=== PATIENT | female | born 1990 | race African-American/Black ===

== ENCOUNTER 2017-07-04 09:25 | Observation (INO) | payer MEDICAID ==
[~2017-07-04] VITALS: Ht 162.6 cm; Wt 75.3 kg
[2017-07-04] MEDS ORDERED: PREN1TAB78 PO (10:19)
== END 2017-07-04 10:35 | disposition home or self-care (01) ==
LOC: L&D 09:25
PROVIDERS: ADMIT Obstetrics & Gynecology; ATTEND Obstetrics & Gynecology
DX: O26.893 Other specified pregnancy related conditions, third trimester (principal); R10.2 Pelvic and perineal pain; Z3A.35 35 weeks gestation of pregnancy
CPT/HCPCS: 99281; G0378

== ENCOUNTER 2018-05-01 01:34 | Emergency (ER) | payer MEDICAID ==
[~2018-05-01] VITALS: Ht 172.7 cm; Wt 68.5 kg
[~2018-05-01 01:34] MED LIST: PREN1TAB78 PO
[2018-05-01 04:15] VITALS: BP 125/66
== END 2018-05-01 04:16 | disposition home or self-care (01) ==
LOC: ER 01:34
DX: H10.9 Unspecified conjunctivitis (principal); H00.034 Abscess of left upper eyelid
CPT/HCPCS: 99283

== ENCOUNTER 2021-10-17 09:21 | Emergency (ER) | payer MEDICAID ==
[~2021-10-17] VITALS: Ht 162.6 cm; Wt 82.0 kg
[2021-10-17 10:25] LABS: CLARITY URINE CLEAR (CLEAR); COLOR URINE DARK YELLOW (YELLOW); KETONES URINE NEGATIVE (NEGATIVE); LEUKOCYTE ESTERASE URINE 1+ (NEGATIVE); NITRITE URINE POSITIVE (NEGATIVE); OCCULT BLOOD URINE 1+ (NEGATIVE); PH URINE 6.5 (4.5-8.0); PROTEIN URINE 2+ (NEGATIVE)
[2021-10-17 10:50] LABS: BASOPHILS % 0.6 % (0.0-2.0); EOSINOPHILS % 0.3 % (0.0-5.0); HEMATOCRIT. 41.3 % (36.0-48.0); HEMOGLOBIN. 13.9 g/dL (12.0-16.0); LYMPHOCYTES % 19.3 % (20.0-50.0); MEAN CORPUSCULAR HEMOGLOBIN 29.7 pg (28.0-32.0); MEAN PLATELET VOLUME 6.9 fl (7.4-10.4); MONOCYTES % 5.7 % (2.0-8.0); NEUTROPHILS % 74.1 % (40.0-76.0); PLATELET 421 x1000/uL (130-400); RED BLOOD CELL COUNT 4.69 mill/uL (4.2-5.4); RED CELL DISTRIBUTION WIDTH 13.2 % (11.6-14.6)
[2021-10-17 10:56] LABS: CHLORIDE 107 mEq/L (98-107)
[2021-10-17] MEDS ORDERED: CEFTRIAXONE SODIUM 1 G/VIAL IM ONE (11:30)
[2021-10-17] MEDS ORDERED: LIDOCAINE HCL 1% 20ML VIAL (Pyxis) INJ INFIL ONE (11:30)
[2021-10-17] MEDS ORDERED: DOXY100T2 MT (11:59)
[2021-10-17] MEDS ORDERED: OMEP20CA14 MT (12:00)
[2021-10-17] MEDS ORDERED: METR500T MT (12:00)
[2021-10-17 12:25] VITALS: BP 126/78
== END 2021-10-17 12:26 | disposition home or self-care (01) ==
LOC: ER 09:49
DX: N39.0 Urinary tract infection, site not specified (principal); N76.0 Acute vaginitis; N73.9 Female pelvic inflammatory disease, unspecified; Z91.040 Latex allergy status; Z88.1 Allergy status to other antibiotic agents
CPT/HCPCS: 36415; 80053; 81003; 81025; 83690; 85025; 87210; 96372; 99283; J0696; J3490

== ENCOUNTER 2021-10-23 07:23 | Emergency (ER) | payer MEDICAID ==
[~2021-10-23] VITALS: Ht 154.9 cm; Wt 82.0 kg
[~2021-10-23 07:23] MED LIST changes: +DOXY100T2 MT; +METR500T MT; +OMEP20CA14 MT
[2021-10-23 08:11] LABS: CLARITY URINE CLEAR (CLEAR); COLOR URINE YELLOW (YELLOW); KETONES URINE NEGATIVE (NEGATIVE); LEUKOCYTE ESTERASE URINE NEGATIVE (NEGATIVE); NITRITE URINE NEGATIVE (NEGATIVE); OCCULT BLOOD URINE TRACE (NEGATIVE); PROTEIN URINE NEGATIVE (NEGATIVE); SPECIFIC GRAVITY URINE 1.003 (1.005-1.030); UROBILINOGEN URINE 0.2 E.U./dL (0.2-1.0)
[2021-10-23 08:35] VITALS: BP 130/85
== END 2021-10-23 08:35 | disposition home or self-care (01) ==
LOC: ER 07:31
DX: R10.2 Pelvic and perineal pain (principal); Z91.040 Latex allergy status; Z88.0 Allergy status to penicillin
CPT/HCPCS: 81003; 81025; 99283; Z7610